=== PATIENT | male | born 1940 | race Caucasian/White ===

== ENCOUNTER 2017-12-28 13:45 | Inpatient (IN) ==
--- NOTE | 2017-12-28 14:00 | Emergency Department Note ---
Disposition Weakness HPI - General Chief complaint: ED Weakness Stated complaint: Dehydration Time Seen by Provider: 12/28/17 13:54 Source: patient Mode of arrival: ambulatory Limitations: no limitations Nursing Notes Reviewed: Yes Vital Signs Reviewed: Yes - History of Present Illness Pain Scale: 9 - Related Data Home Medications Medication Instructions Recorded Confirmed Rabeprazole Sodium [Aciphex] 20 mg PO DAILY 10/03/16 11/08/17 Docusate Sodium [Colace] 200 mg PO BID 11/08/17 11/08/17 OxyCODONE Immed Rel [Roxicodone 20 20 mg PO Q3H PRN 11/08/17 11/08/17 MG] Oxycodone HCl [Oxycontin] 40 mg PO Q8H 11/08/17 11/08/17 Rivaroxaban [Xarelto] 20 mg PO DAILY 11/08/17 11/08/17 Sennosides [Senokot] 2 tab PO BID 11/08/17 11/08/17 predniSONE [PredniSONE] 40 mg PO DAILY 11/08/17 11/08/17 Allergies Allergy/AdvReac Type Severity Reaction Status Date / Time morphine Allergy Hallucinati Verified 09/14/17 09:05 ng aspirin AdvReac Heartburn Verified 09/14/17 09:05 Past Medical History - Past Medical History Medical history: Reports: cancer, DVT, kidney stones, pulmonary embolus, other Surgical history: Reports: no surgical history, non-contributory Psychiatric history: Reports: no psych history - Social History Smoking Status: Former smoker (quit age 31) Smokeless Tobacco Status: No Alcohol use: Reports: none Drug use: Reports: none Course Vital Signs Temperature 99.2 F 12/28/17 13:48 Pulse Rate 112 12/28/17 13:48 Respiratory Rate 18 12/28/17 13:48 Blood Pressure 95/48 12/28/17 13:48 O2 Sat by Pulse Oximetry 93 12/28/17 13:48 Temperature 99.2 F 12/28/17 13:48 Pulse Rate 112 12/28/17 13:48 Respiratory Rate 18 12/28/17 13:48 Blood Pressure 95/48 12/28/17 13:48 O2 Sat by Pulse Oximetry 93 12/28/17 13:48 Oxygen Delivery Oxygen Delivery Room Air
[2017-12-28 14:23] LABS: Hematocrit 34.8 % (37.5-50.1); Hemoglobin 11.4 g/dL (12.9-16.9); Immature Platelets 1.8 % (1.1-6.1); Mean Corpuscular HGB Conc 32.8 g/dL (31.6-35.5); Mean Corpuscular Hemoglobin 26.6 pg (28.0-33.3); Mean Corpuscular Volume 81.1 fL (83.0-100.0); Monocytes # 0.2 K/mcL (0.0-1.3); Nucleated Red Blood Cells 0.6 /100 WBC (0); Red Blood Count 4.29 M/mcL (4.19-5.50); Red Cell Distribution Width 17.7 % (11.5-14.5)
--- NOTE | 2017-12-28 14:27 | Emergency Department Note ---
Disposition Clinical Impression: Hyponatremia, Mesothelioma of left lung, Dehydration Hypotension Qualifiers: Hypotension type: unspecified hypotension type Qualified Code(s): I95.9 - Hypotension, unspecified Disposition: Admitted As Inpatient Condition: Fair Time of Disposition: 17:10 General Adult HPI - General Chief complaint: ED Weakness Stated complaint: Dehydration Time Seen by Provider: 12/28/17 13:54 Nursing Notes Reviewed: Yes Vital Signs Reviewed: Yes - History of Present Illness HPI Narrative: Patient has a history of mesothelioma and this was diagnosed 2 years ago and he does receive chemotherapy with last dose 7 days ago but no radiation or surgery has been done and he presents today with his and daughter and complained of dehydration and he has had decreased oral input since his last chemotherapy and he does not have any current vomiting or diarrhea. No infectious symptoms. He does have associated lightheadedness. This is worse with ambulation. No fever. He does have left lower anterior lung pain and this is chronic and not. He denies any blurred vision, rhinorrhea, cough or sneezing, blood in the urine or stool. No localized numbness or weakness of the extremities, slurred speech or facial droop. No skin rash. No bruising of the skin. Social history : Stopped smoking in 1971, no alcohol or drugs Pain Scale: 9 - Related Data Home Medications Medication Instructions Recorded Confirmed Rabeprazole Sodium [Aciphex] 20 mg PO DAILY 10/03/16 12/28/17 Docusate Sodium [Colace] 200 mg PO BID 11/08/17 12/28/17 OxyCODONE Immed Rel [Roxicodone 20 20 mg PO Q3H PRN 11/08/17 12/28/17 MG] Oxycodone HCl [Oxycontin] 40 mg PO Q8H 11/08/17 12/28/17 Rivaroxaban [Xarelto] 20 mg PO DAILY 11/08/17 12/28/17 Sennosides [Senokot] 2 tab PO BID 11/08/17 12/28/17 Dexamethasone [Decadron] 4 mg PO DAILY 12/28/17 12/28/17 Allergies Allergy/AdvReac Type Severity Reaction Status Date / Time morphine Allergy Hallucinati Verified 12/28/17 14:47 ng aspirin AdvReac Heartburn Verified 12/28/17 14:47 All systems ED: reviewed and negative except as stated. Review of Systems: As Per HPI Past Medical History - Past Medical History Medical history: Reports: cancer, DVT, kidney stones, pulmonary embolus, other Surgical history: Reports: no surgical history, non-contributory Psychiatric history: Reports: no psych history - Social History Smoking Status: Former smoker (quit age 31) Smokeless Tobacco Status: No Alcohol use: Reports: none Drug use: Reports: none Physical Exam CONSTITUTIONAL: Well-appearing; well-nourished; A&O X3she does know the day, month and year and name of the hospital, but was somewhat confused as to why he is in the emergency department, in no apparent distress HEAD: Normocephalic; atraumatic. EYES: PERRL, EOMI, no scleral icterus NOSE: The nose is normal in appearance without rhinorrhea NECK: Supple without rigidity, no TALON RESP: Normal chest excursion with respiration; breath sounds clear and equal bilaterally; no wheezes, rhonchi, or rales CARD: Regular rhythm, without murmurs, rub or gallop ABD: Non-distended; non-tender, soft, without rigidity, rebound or guarding SKIN: Normal for age and race; warm and dry; no apparent lesions, no rash NEUROLOGICAL: Patient is alert and oriented times three. Cranial nerves III- XII are intact. Sensory and motor functions are intact. Strength is 5/5 for flexion and extension in all 4 extremities. Patellar DTRS are equal and intact. Finger to nose testing is equal and normal bilaterally. EXTREMITIES: Pulses are 2 plus and equal times 4 extremities, no peripheral edema or calf muscle pain. Course Vital Signs Temperature 99.2 F 12/28/17 13:48 Pulse Rate 112 12/28/17 13:48 Respiratory Rate 18 12/28/17 13:48 Blood Pressure 95/48 12/28/17 13:48 O2 Sat by Pulse Oximetry 93 12/28/17 13:48 Temperature 99.2 F 12/28/17 14:28 Pulse Rate 91 12/28/17 16:00 Respiratory Rate 20 12/28/17 16:00 Blood Pressure 102/66 12/28/17 16:00 O2 Sat by Pulse Oximetry 96 12/28/17 16:20 Oxygen Delivery Oxygen Delivery Nasal Cannula Medical Decision Making - MDM Narrative Medical decision making narrative: labs, IV fluids, recheck oral temp, lactate, results are pending. The patient is hypotensive and tachycardic and he does have some altered consciousness which all concerning symptoms. 1427 I did review the patient's EKG showing sinus tachycardia with a rate of 112 bpm and without acute ischemic change 1446 The patient does have pancytopenia but more concerning does have significant hyponatremia with sodium 124, this could be from SIADH or from another etiology. Patient does have IV fluids ordered. The patient is over and chest x -ray right now. The patient will be admitted to the hospital. Discussed this with the family and they are in agreement. Patient does have some mild confusion and the hyponatremia possibly be the reason for that and this can also be further evaluated as an inpatient 1540 The family did follow up by calling [facility] who felt the patient would benefit most with a admission here as opposed to transferring the family is comfortable with this plan and the patient will be admitted. 1709 - Medical Records Medical records reviewed: Yes I reviewed the patient's medical records. - Lab Data Lab results reviewed: Yes I reviewed the patient's lab results. Result diagrams: 12/28/17 14:09 12/28/17 14:09 Lab Results 12/28/17 12/28/17 12/28/17 Range/Units 14:09 14:09 14:48 WBC 3.3 L (4.3-11.1) K/mcL RBC 4.29 (4.19-5.50) M/mcL Hgb 11.4 L (12.9-16.9) g/dL Hct 34.8 L (37.5-50.1) % MCV 81.1 L (83.0-100.0) fL MCH 26.6 L (28.0-33.3) pg MCHC 32.8 (31.6-35.5) g/dL RDW 17.7 H (11.5-14.5) % Plt Count 61 L (140-400) K/mcL MPV 8.0 L (9.4-12.4) fL Seg Neutrophils % 78.0 % Band Neutrophils % 6.0 H (0-4) % Lymphocytes % 6.0 % Monocytes % 6.0 % Myelocytes % 4.0 H (0) % Neutrophils # 2.8 (1.6-8.9) K/mcL Lymphocytes # 0.2 L (0.6-4.6) K/mcL Monocytes # 0.2 (0.0-1.3) K/mcL Nucleated RBCs/100 WBC 0.6 H (0) /100 WBC Platelet Estimate Decreased L (Normal) Immature Plt Fraction 1.8 (1.1-6.1) % Anisocytosis 1+ A (Not Present) Sodium 124 L (136-145) mEq/L Potassium 4.0 (3.5-5.1) mEq/L Chloride 88 L (98-107) mEq/L Carbon Dioxide 26 (23-29) mEq/L BUN 17 (8-23) mg/dL Creatinine 1.03 (0.70-1.30) mg/dL Est GFR ( Amer) > 60 (> 60) Est GFR (Non-Af Amer) > 60 (> 60) BUN/Creatinine Ratio 17 (6-26) Glucose 133 H (70-105) mg/dL Calculated Osmolality 261 L (280-300) Lactic Acid 0.9 (0.5-2.2) mmol/L Calcium 9.5 (8.6-10.3) mg/dL Total Bilirubin (0.3-1.0) mg/dL Direct Bilirubin (0.0-0.2) mg/dL Indirect Bilirubin (0.0-1.2) mg/dL AST (13-39) Units/L ALT (7-52) Units/L Alkaline Phosphatase (34-104) Units/L Troponin I < 0.03 (< 0.04) ng/mL Serum Total Protein (6.4-8.9) g/dL Albumin (3.5-5.7) g/dL Globulin (2.4-3.5) g/dL Albumin/Globulin Ratio (1.1-2.2) TSH (0.340-5.600) mcIU/mL Free T4 (0.70-2.00) ng/dl Random Cortisol mcg/dl 12/28/17 Range/Units 14:48 WBC (4.3-11.1) K/mcL RBC (4.19-5.50) M/mcL Hgb (12.9-16.9) g/dL Hct (37.5-50.1) % MCV (83.0-100.0) fL MCH (28.0-33.3) pg MCHC (31.6-35.5) g/dL RDW (11.5-14.5) % Plt Count (140-400) K/mcL MPV (9.4-12.4) fL Seg Neutrophils % % Band Neutrophils % (0-4) % Lymphocytes % % Monocytes % % Myelocytes % (0) % Neutrophils # (1.6-8.9) K/mcL Lymphocytes # (0.6-4.6) K/mcL Monocytes # (0.0-1.3) K/mcL Nucleated RBCs/100 WBC (0) /100 WBC Platelet Estimate (Normal) Immature Plt Fraction (1.1-6.1) % Anisocytosis (Not Present) Sodium (136-145) mEq/L Potassium (3.5-5.1) mEq/L Chloride (98-107) mEq/L Carbon Dioxide (23-29) mEq/L BUN (8-23) mg/dL Creatinine (0.70-1.30) mg/dL Est GFR ( Amer) (> 60) Est GFR (Non-Af Amer) (> 60) BUN/Creatinine Ratio (6-26) Glucose (70-105) mg/dL Calculated Osmolality (280-300) Lactic Acid (0.5-2.2) mmol/L Calcium (8.6-10.3) mg/dL Total Bilirubin 0.6 (0.3-1.0) mg/dL Direct Bilirubin 0.1 (0.0-0.2) mg/dL Indirect Bilirubin 0.5 (0.0-1.2) mg/dL AST 13 (13-39) Units/L ALT 10 (7-52) Units/L Alkaline Phosphatase 79 (34-104) Units/L Troponin I (< 0.04) ng/mL Serum Total Protein 7.2 (6.4-8.9) g/dL Albumin 3.6 (3.5-5.7) g/dL Globulin 3.6 H (2.4-3.5) g/dL Albumin/Globulin Ratio 1.0 L (1.1-2.2) TSH 24.529 H (0.340-5.600) mcIU/mL Free T4 0.79 (0.70-2.00) ng/dl Random Cortisol 16.0 mcg/dl - Radiology Data Radiology results reviewed: Yes I reviewed the patient's radiology results. Critical Care Time Critical Care Time: No
[2017-12-28 14:40] LABS: Troponin I < 0.03 ng/mL (< 0.04)
[2017-12-28 14:41] LABS: BUN/Creatinine Ratio 17 (6-26); Blood Urea Nitrogen 17 mg/dL (8-23); Calcium 9.5 mg/dL (8.6-10.3); Carbon Dioxide 26 mEq/L (23-29); Chloride 88 mEq/L (98-107); Glucose 133 mg/dL (70-105); Osmolality,Calculated 261 (280-300); Sodium 124 mEq/L (136-145); eGFR For Non-African Americans > 60 (> 60)
[2017-12-28 14:58] LABS: Platelet Count 61 K/mcL (140-400)
[2017-12-28 15:00] LABS: Lymphocytes # 0.2 K/mcL (0.6-4.6); Neutrophils # 2.8 K/mcL (1.6-8.9)
[2017-12-28 15:01] LABS: Anisocytosis 1+ (Not Present); Platelet Estimate Decreased (Normal)
[2017-12-28 15:24] LABS: Albumin 3.6 g/dL (3.5-5.7); Bilirubin,Direct 0.1 mg/dL (0.0-0.2); Bilirubin,Indirect 0.5 mg/dL (0.0-1.2); Bilirubin,Total 0.6 mg/dL (0.3-1.0); Globulin 3.6 g/dL (2.4-3.5); Total Protein 7.2 g/dL (6.4-8.9)
[2017-12-28] MEDS ORDERED: 0.9 % Sodium Chloride 500 ML IVC ONE ×2 (16:19)
--- NOTE | 2017-12-28 16:41 | Internal Med History&Physical ---
Date of Encounter: 12/29/17 Time of Encounter: 16:36 Internal Medicine - H&P: HPI Chief complaint: weakness and fatigue Admitted From: Home Plans for Post Hospital Care: Home History of present illness: Mr. Stein is a 77 year old male with history of mesothelioma diagnosed two years ago on chemotherapy, and DVT/PE on xarelto presented to the ED with complaint of weakness. As per patient he received chemotherapy at [facility] 7 days before admission and has been having progressively decreasing oral intake in the past 7 days. he has not consmed any liquids or solids today. He denies any nausea vomiting or diarrhea. He does complain of lightheadedness that started this morning along with dryness of his mouth which prompted him to call his doctor at [facility] and was told to come to [facility] for hydration therapy. he was treated with [facility] bol[facility] with improvement of his symptoms. he was found to be hyponatremic and hypochloremic so he was endorsed for admission. he denies fever, chills, falls, headtrauma, vision loss, chest pain, SOB, N/V/D , constipation. he does complain of LUQ abdominal pain and states that his cancer is located there whch he has been prescribed oxycodone by his doctors at [facility]. he is due for chemotherapy back at [facility] with Dr. Varghese next sunday with gemcitrabine. Past Med Surg Social Fam HX - Past Medical History Medical history: cancer, DVT, kidney stones, pulmonary embolus, other Additional medical history: lung cancer Psychiatric history: no psych history - Past Surgical History Surgical History: no surgical history, non-contributory - Social History Smoking Status: Former smoker (quit age 31) Smokeless Tobacco Status: No Alcohol use: none Drug use: none Internal Medicine - H&P: Meds Rabeprazole Sodium [Aciphex] 20 mg PO DAILY 10/03/16 [History] Docusate Sodium [Colace] 200 mg PO BID 11/08/17 [History] OxyCODONE Immed Rel [Roxicodone 20 MG] 20 mg PO Q3H PRN 11/08/17 [History] Oxycodone HCl [Oxycontin] 40 mg PO Q8H 11/08/17 [History] Rivaroxaban [Xarelto] 20 mg PO DAILY 11/08/17 [History] Sennosides [Senokot] 2 tab PO BID 11/08/17 [History] Dexamethasone [Decadron] 4 mg PO DAILY 12/28/17 [History] 3 Allergy/AdvReac Type Severity Reaction Status Date / Time morphine Allergy Hallucinati Verified 12/28/17 14:47 ng aspirin AdvReac Heartburn Verified 12/28/17 14:47 All Systems PM: review of systems was performed and is negative for pertinent findings except as documented above in the HPI. - Constitutional Vitals: Temp Pulse Resp BP Pulse Ox 99.2 F 91 20 102/66 96 12/28/17 14:28 12/28/17 16:00 12/28/17 16:00 12/28/17 16:00 12/28/17 16:20 - Other Additional findings: General: Patient is alert, oriented, no acute distress, Head: atraumatic, normocephalic, Eye: normal appearance, PERRL, no scleral icterus, no conjunctival injection ENT: mucous membranes Dry , normal external ear exam Neck: normal inspection, trachea midline, full ROM, no carotid bruits Chest: normal inspection, symmetric chest rise Respiratory: Good respiratory effort. Bilateral breath sounds are clear without wheezing, crackles, or rhonchi. Cardiovascular: Regular rate and rhythm. No clicks, rubs, gallops, or murmors. Normal heart sounds. Abdomen: Bowel sounds present normoactive x-4 quadrants. Abdomen is soft, nondistended. mild LuQ tenderness. No guarding or rebound. No organomegaly noted, Musculoskeletal: Spontaneously moving all extremities. no edema or calf tenderness Skin: warm, dry, intact. dehydrated Neuro: Alert and oriented x4. Sensation light touch intact. Cranial nerves II- 12 is intact. not aphasic, No nystagmus Psych: Patient's affect is normal Internal Med - H&P Results - Labs CBC & Chem 7: 12/28/17 14:09 12/28/17 18:53 Labs: Short CBC 12/28/17 Range/Units 14:09 WBC 3.3 L (4.3-11.1) K/mcL Hgb 11.4 L (12.9-16.9) g/dL Hct 34.8 L (37.5-50.1) % Plt Count 61 L (140-400) K/mcL Neutrophils # 2.8 (1.6-8.9) K/mcL BMP 12/28/17 14:09 Sodium 124 L Potassium 4.0 Chloride 88 L Carbon Dioxide 26 BUN 17 Creatinine 1.03 Glucose 133 H Calcium 9.5 Cardiac Enzymes 12/28/17 Range/Units 14:09 Troponin I < 0.03 (< 0.04) ng/mL Liver Function 12/28/17 Range/Units 14:48 Total Bilirubin 0.6 (0.3-1.0) mg/dL Direct Bilirubin 0.1 (0.0-0.2) mg/dL AST 13 (13-39) Units/L ALT 10 (7-52) Units/L Alkaline Phosphatase 79 (34-104) Units/L Albumin 3.6 (3.5-5.7) g/dL - Diagnostic Studies Chest x-ray Additional comments: Large hazy opacity projected over the lateral left hemithorax most compatible worsening left-sided pleural mass. - Assessment and plan (1) Hyponatremia with decreased serum osmolality Current Visit: Yes Status: Acute Assessment and plan: most likely secondary to poor oral intake -hypovolumic on exam will get CT head to rule out any intracranial abnormalities received 1 L NS in the ED will follow with NS at 125 ml/hr Check BMP at 6pm then q6 hrs Check Urine osmolarity, Urine lytes Check TSH, Free-T4, cortisol level Lipid panel- TGD in AM magnesium, PO4 Replace potassium if needed Avoid diuretics and SSRIs Avoid over correction of hyponatremia (2) Mesothelioma of lung Current Visit: Yes Status: Acute Assessment and plan: is following with Dr. Varghese had chemotherapy 1 week ago due for chemotherapy again next sunday (Gemcitabine ) will continue dexamethasone (3) DVT (deep venous thrombosis) Current Visit: No Status: Acute Assessment and plan: on xarelto - took his dose this AM next dose is due tomorrow in the AM - follow CBC and continue according to platelets has thrombocytopenia (61) most likely secondary to chemotherapy monitor platelets watch for bleeding Qualifiers: Affected thrombotic vein of extremity: unspecified vein of extremity Chronicity: unspecified Laterality: unspecified laterality Qualified Code(s) : I82.409 - Acute embolism and thrombosis of unspecified deep veins of unspecified lower extremity (4) Pancytopenia due to chemotherapy Current Visit: Yes Status: Acute Assessment and plan: secondary to chemotherapy will continue to follow CBC type and screen H/h and hemodynamically stable (5) DVT prophylaxis Current Visit: Yes Status: Acute Assessment and plan: on xarelto - Time Spent With Patient Total time spent is greater than 50% in coordination of care (as documented) at patient's floor/unit and/or counseling patient:
[2017-12-28] MEDS ORDERED: Naloxone 0.4 MG/ML INJ IVP PRN (16:47)
[2017-12-28] MEDS ORDERED: *HR* OxyCODONE ER (12 HR) 40 MG TABLET PO SCH (17:00)
[2017-12-28 17:02] LABS: Thyroid Stimulating Hormone 24.529 mcIU/mL (0.340-5.600)
[2017-12-28 17:48] LABS: Bilirubin,Urine Negative (Negative); Blood,Urine Negative (Negative); Clarity,Urine Clear (Clear); Color,Urine Yellow (Yellow); Glucose,Urine (UA) Normal (Normal); Ketones,Urine Negative (Negative); Leukocyte Esterase,Urine Negative (Negative); Nitrite,Urine Negative (Negative); PH,Urine 6.5 pH Units (5.0-8.0); Protein,Urine 30 mg/dL (Neg-Trace); Specific Gravity,Urine 1.014 (1.010-1.025); Urobilinogen,Urine Normal (Normal)
[2017-12-28 17:52] LABS: Bacteria,Urine None Seen per hpf (None-Few); Hyaline Casts,Urine None Seen per lpf (None-Few); Squamous Epithelial Cell,Urine Moderate per lpf (None-Few); WBC,Urine 0-3 per hpf (0-3)
[2017-12-28 17:55] LABS: Potassium,Urine 41.9 mEq/L; Sodium, Urine 54.9 mEq/L
[2017-12-28] MEDS: 0.9 % Sodium Chloride 1,000 ML IVC SCH (18:30)
[2017-12-28] MEDS: *HR* OxyCODONE ER (12 HR) 40 MG TABLET PO SCH (19:05)
[2017-12-28 19:30] LABS: Magnesium 1.5 mg/dL (1.6-2.6); Phosphorous 4.7 mg/dL (2.7-4.5)
[2017-12-28 19:31] LABS: BUN/Creatinine Ratio 17 (6-26); Blood Urea Nitrogen 17 mg/dL (8-23); Calcium 8.7 mg/dL (8.6-10.3); Carbon Dioxide 27 mEq/L (23-29); Chloride 91 mEq/L (98-107); Glucose 154 mg/dL (70-105); Osmolality,Calculated 269 (280-300); Potassium 4.2 mEq/L (3.5-5.1); Sodium 127 mEq/L (136-145); eGFR For Non-African Americans > 60 (> 60)
[2017-12-28] MEDS: Sennosides 8.6 MG TABLET PO SCH (20:55)
[2017-12-28] MEDS: *HR* OxyCODONE Immed Rel 5 MG TABLET PO PRN (22:40)
--- NOTE | 2017-12-28 23:11 | Event Note ---
Date of Encounter: 12/28/17 Time of Encounter: 20:[address] findings were discussed with patient and family. they were told that there is a need for MRI to better visualize the area. they would like to think about if they would like to proceed with the MRI because they were concenred that it could have been a mass. technician biological health and nurse notified i spoke to the family again, discussed that the CT findings suggested Hypodensity in the right frontal lobe, anterior cerebral artery territory. This is consistent with infarction, age indeterminate from subacute to chronic and no mass was visualized they decided that they will have the MRI done in the AM neurologist consulted as patient is on xarelto for Pe adn DVT and has thrombocytopenia in regards to adding ASA ( reports he is not allergic to ASA) to his regimen along with lipitor will send lipid panel in the AM - lipitor 40 mg started as per neurologist will continue xarelto as he is thrombocytopenic and hold ASA for now will continue lipitor will follow up MRI in the AM
[2017-12-28] MEDS ORDERED: Aspirin 81 MG TAB.CHEW PO SCH (23:30)
[2017-12-29 01:04] LABS: Red Cell Distribution Width 17.1 % (11.5-14.5)
[2017-12-29 01:06] LABS: Hematocrit 28.4 % (37.5-50.1); Hemoglobin 9.2 g/dL (12.9-16.9); Immature Platelets 2.6 % (1.1-6.1); Mean Corpuscular HGB Conc 32.4 g/dL (31.6-35.5); Mean Corpuscular Hemoglobin 26.5 pg (28.0-33.3); Mean Corpuscular Volume 81.8 fL (83.0-100.0); Mean Platelet Volume 8.9 fL (9.4-12.4); Red Blood Count 3.47 M/mcL (4.19-5.50)
[2017-12-29 01:16] LABS: BUN/Creatinine Ratio 19 (6-26); Blood Urea Nitrogen 17 mg/dL (8-23); Calcium 8.7 mg/dL (8.6-10.3); Carbon Dioxide 27 mEq/L (23-29); Chloride 93 mEq/L (98-107); Chol/HDL Ratio 2.5 (0-4.9); Glucose 139 mg/dL (70-105); Osmolality,Calculated 270 (280-300); Potassium 3.9 mEq/L (3.5-5.1); Sodium 128 mEq/L (136-145); eGFR For Non-African Americans > 60 (> 60)
[2017-12-29 01:31] LABS: Platelet Count 56 K/mcL (140-400)
[2017-12-29] MEDS: 0.9 % Sodium Chloride 1,000 ML IVC SCH ×3 (02:10→22:14)
[2017-12-29 02:13] LABS: Lymphocytes # 0.2 K/mcL (0.6-4.6); Monocytes # 0.2 K/mcL (0.0-1.3); Neutrophils # 2.2 K/mcL (1.6-8.9); Platelet Estimate Decreased (Normal); Toxic Granulation Present (Not Present)
[2017-12-29 02:14] LABS: Anisocytosis 1+ (Not Present); Macrocytosis Present (Not Present)
[2017-12-29] MEDS: *HR* OxyCODONE ER (12 HR) 40 MG TABLET PO SCH ×3 (04:05→18:49)
[2017-12-29 07:10] LABS: BUN/Creatinine Ratio 18 (6-26); Blood Urea Nitrogen 16 mg/dL (8-23); Calcium 8.9 mg/dL (8.6-10.3); Carbon Dioxide 28 mEq/L (23-29); Chloride 92 mEq/L (98-107); Glucose 102 mg/dL (70-105); Osmolality,Calculated 271 (280-300); Potassium 4.2 mEq/L (3.5-5.1); Sodium 130 mEq/L (136-145); eGFR For Non-African Americans > 60 (> 60)
[2017-12-29] MEDS: *HR* OxyCODONE Immed Rel 5 MG TABLET PO PRN ×4 (07:47→20:36)
[2017-12-29] MEDS: *HR* Rivaroxaban 10 MG TABLET PO SCH (09:16)
[2017-12-29] MEDS: Sennosides 8.6 MG TABLET PO SCH ×2 (09:16→20:36)
--- NOTE | 2017-12-29 14:07 | Internal Med Progress Note ---
Date of Encounter: 12/29/17 Time of Encounter: 13:57 - Assessment and plan (1) Hyponatremia with decreased serum osmolality Current Visit: Yes Status: Acute Assessment and plan: most likely secondary to underlying brain mass high TSH. CT brain and MRI brain done with above-mentioned finding. Trending up sodium level. Continue to monitor BMP. (2) Mesothelioma of lung Current Visit: Yes Status: Acute Assessment and plan: is following with Dr. Varghese MRI with right small lesion possible mass therefore consulted oncologist. had chemotherapy 1 week ago due for chemotherapy again next sunday (Gemcitabine ) will continue dexamethasone (3) Pancytopenia due to chemotherapy Current Visit: Yes Status: Acute Assessment and plan: secondary to chemotherapy most likely. Consulted oncologist. Continue to monitor. Aspirin on hold. (4) DVT (deep venous thrombosis) Current Visit: No Status: Acute Assessment and plan: Recently diagnosed in September 2017. I discussed with neurologist about continuation of Xarelto having recent brain mass diagnosis and he advised to continue as there is no sign of hemorrhage will recently diagnosed DVT. Continue to monitor patient. Qualifiers: Affected thrombotic vein of extremity: unspecified vein of extremity Chronicity: unspecified Laterality: unspecified laterality Qualified Code(s) : I82.409 - Acute embolism and thrombosis of unspecified deep veins of unspecified lower extremity (5) DVT prophylaxis Current Visit: Yes Status: Acute Assessment and plan: on xarelto (6) Brain mass Current Visit: Yes Status: Acute Assessment and plan: New finding and then family. Consulted neurologist and oncologist. Will make the plan for the patient with the help of oncologists and neurologist transfer to [facility] if needed - Time Spent With Patient Total time spent is greater than 50% in coordination of care (as documented) at patient's floor/unit and/or counseling patient: 25 - 35 minutes - Subjective Interval history: Better confusion but is still not baseline. Family at bedside. Discussed the abnormal report of MRI brain. Review the lab with better sodium level. Denies fever chills nausea vomiting abdominal pain, chest pain, shortness of breath, - Constitutional Vitals: Temp Pulse Resp BP Pulse Ox 99.3 F 103 15 110/61 91 12/29/17 11:07 12/29/17 11:07 12/29/17 11:07 12/29/17 11:07 12/29/17 11:07 Exam: General appearance: No acute distress, A&O X 2, family at bedside Head exam: Atraumatic Eye exam: EOMI, PERRLA ENT exam: Moist oral mucosa Neck nontender, supple Respiratory exam: Clear to auscultation bilaterally Cardiovascular exam: Regular rate and rhythm, no systolic murmur Abdominal exam: Soft, nontender, nondistended, positive bowel sounds Extremities exam: No calf tenderness, no pedal edema Present: Skin-, warm, dry, intact Neurological exam: CN II-XII grossly intact, no focal deficits. No facial droop. Normal speech. Internal Medicine: Result - Labs CBC & Chem 7: 12/29/17 00:20 12/29/17 06:02 Labs: Short CBC 12/29/17 Range/Units 00:20 WBC 2.6 L (4.3-11.1) K/mcL Hgb 9.2 L D (12.9-16.9) g/dL Hct 28.4 L (37.5-50.1) % Plt Count 56 L (140-400) K/mcL Neutrophils # 2.2 (1.6-8.9) K/mcL BMP 12/28/17 12/29/17 12/29/17 18:53 00:20 06:02 Sodium 127 L 128 L 130 L Potassium 4.2 3.9 4.2 Chloride 91 L 93 L 92 L Carbon Dioxide 27 27 28 BUN 17 17 16 Creatinine 0.98 0.89 0.89 Glucose 154 H 139 H 102 Calcium 8.7 8.7 8.9 Urine 12/28/17 Range/Units 17:35 Urine Color Yellow (Yellow) Urine Clarity Clear (Clear) Urine pH 6.5 (5.0-8.0) pH Units Ur Specific [place] 1.014 (1.010-1.025) Urine Protein 30 H (Neg-Trace) mg/dL Urine Glucose (UA) Normal (Normal) mg/dL - Impressions Impressions Brain MRI 12/29/17 19:37 IMPRESSION: 1. Enhancing right frontal lobe mass measures 1.5 x 1.4 x 1.3 cm most suspicious for intracranial metastatic disease in the setting of known lung cancer. Surrounding vasogenic edema, but no midline shift. 2. Parenchymal volume loss and sequela of mild to moderate chronic microvascular ischemic changes. The findings were sent to the Radiology Results Communication [facility] at 11:26 am on 12/29/2017to be communicated to a licensed caregiver. D/ / 12/29/2017 11:27:34 Aung العراقي MD / kapil Interpreting Provider: Aung العراقي MD Consult Discharge Plan - Plan Referrals: Nicki Sheehan CNP [Primary Care Provider] -
--- NOTE | 2017-12-29 15:42 | Neurology - Consult Note ---
Date of Encounter: 12/29/17 Time of Encounter: 11:30 Assessment and Plan (1) Brain mass Current Visit: Yes Status: Acute Patient was an history of mesothelioma of the lung status post chemotherapy was found to have a hypodensity on the CT scan of the head had an MRI of the brain that shows mass with the possibility of metastatic disease The mass seems to be enhancing right frontal lobe mass measures 1.5 x 1.4 x 1.3 cm most suspicious for intracranial metastatic disease. There is some Surrounding vasogenic edema, but no midline shift. Patient would require further workup at the moment it is not having any other clinical symptoms his confusion earlier which was likely related to dehydration and hyponatremia has been resolved now. No evidence of any bleed currently patient is on Xarelto for DVT he may continue on it. Patient also on Decadron perhaps dose could be adjusted and increased. Oncology service has been consulted for further recommendations. Explained and discussed with the family and the patient that patient may require tissue diagnosis as is already been established at [facility] perhaps best that he could follow-up of there as clinically stable do not think that he would require any urgent transfer now but certainly need to be seen sooner than later. May start him on prophylaxis antiepileptic medication but will await recommendations from oncology. Discussed in detail with the family and patient all questions were answered. (2) Mesothelioma of lung Current Visit: Yes Status: Acute History of Present Illness HPI: Mr. Stein is a 77 year old male with history of mesothelioma diagnosed two years ago on chemotherapy, and DVT/PE on xarelto presented to the ED with complaint of weakness. As per patient he received chemotherapy at [facility] 7 days before admission and has been having progressively decreasing oral intake in the past 7 days. he was also having lightheadedness that started this morning along with dryness of his mouth which prompted him to call his doctor at [facility] and was told to come to [facility] for hydration therapy. he was treated with IVF bolus in Ed with improvement of his symptoms. he was found to be hyponatremic and hypochloremic so he was admitted for admission. he denies fever, chills, falls, headtrauma, vision loss, chest pain, SOB, N/V/D , constipation. he does complain of LUQ abdominal pain and states.. he is due for chemotherapy back at [facility] with Dr. Varghese next roge with gemcitrabine. Because of the confusion he did have a CT scan in the emergency room that shows some hypodensity with the concern off for subacute infarct. For that reason patient had an MRI of the brain as well. Clinically he did not have any other symptoms besides some confusion that he had it earlier that has been resolved. Patient denies any focal motor weakness did have some dizziness and lightheadedness but no history of seizures and no history of a stroke MRI of the brain showed Enhancing right frontal lobe mass measures 1.5 x 1.4 x 1.3 cm most suspicious for intracranial metastatic disease in the setting of known lung cancer. Surrounding vasogenic edema, but no midline shift. Parenchymal volume loss and sequela of mild to moderate chronic microvascular ischemic changes. Past Med Surg Social Fam HX - Past Medical History Medical history: cancer, DVT, kidney stones, pulmonary embolus, other Additional medical history: lung cancer Psychiatric history: no psych history - Past Surgical History Surgical History: no surgical history, non-contributory - Social History Smoking Status: Former smoker (quit age 31) Smokeless Tobacco Status: No Alcohol use: none Drug use: none Medications and Allergies Rabeprazole Sodium [Aciphex] 20 mg PO DAILY 10/03/16 [History] Docusate Sodium [Colace] 200 mg PO BID 11/08/17 [History] OxyCODONE Immed Rel [Roxicodone 20 MG] 20 mg PO Q3H PRN 11/08/17 [History] Oxycodone HCl [Oxycontin] 40 mg PO Q8H 11/08/17 [History] Rivaroxaban [Xarelto] 20 mg PO DAILY 11/08/17 [History] Sennosides [Senokot] 2 tab PO BID 11/08/17 [History] Dexamethasone [Decadron] 4 mg PO DAILY 12/28/17 [History] 3 Allergy/AdvReac Type Severity Reaction Status Date / Time morphine Allergy Hallucinati Verified 12/28/17 14:47 ng aspirin AdvReac Heartburn Verified 12/28/17 14:47 All Systems: The remainder of the systems were reviewed and are negative Physical Examination - Vital Signs Vital Signs: Initial Vital Signs Temp Pulse Resp BP Pulse Ox 99.2 F 112 18 95/48 93 12/28/17 13:48 12/28/17 13:48 12/28/17 13:48 12/28/17 13:48 12/28/17 13:48 - Constitutional General appearance: comfortable - Neurologic Sensorimotor examination: intact Detailed motor examination: grossly full strength in all extremities Motor examination - right side: 4/5: deltoids, biceps, triceps, wrist flexion, wrist extension, 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, hip flexors, tibialis Anterior, quadriceps, toe extension (EHL), plantarflexion Motor examination - left side: 4/5: deltoids, biceps, triceps, wrist flexion, wrist extension, hip flexors, 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, quadriceps, tibialis Anterior, toe extension (EHL), plantarflexion Detailed sensory examination: intact Reflex and gait examination: intact Reflexes: Biceps: 1+, Triceps: 1+, Brachioradialis: 1+, Patella: 1+, Achilles: 1 + Mental Status Examination: awake, alert, oriented to person, oriented to place, oriented to time, follows commands appropriately, answers questions appropriately, no agnosia, no aphasia, no aproxia Cranial nerve examination: PERRL, EOMI, visual clement intact, corneal reflexes brisk symmetrically, sensory to face intact, mastication intact, no facial asymmetry is present, no dysarthria, hearing is intact symmetrically, soft palate elevates bilaterally upon phonation, gag reflex intact, flexes SCM and trapezius muscles symmetrically with full power, tongue protrudes midline, no atrophy or facial fasiculations present Results - Laboratory Findings CBC and BMP: 12/29/17 00:20 12/29/17 06:02 Abnormal lab findings: Abnormal lab results WBC 2.6 K/mcL (4.3-11.1) L 12/29/17 00:20 RBC 3.47 M/mcL (4.19-5.50) L 12/29/17 00:20 Hgb 9.2 g/dL (12.9-16.9) L D 12/29/17 00:20 Hct 28.4 % (37.5-50.1) L 12/29/17 00:20 MCV 81.8 fL (83.0-100.0) L 12/29/17 00:20 MCH 26.5 pg (28.0-33.3) L 12/29/17 00:20 RDW 17.1 % (11.5-14.5) H 12/29/17 00:20 Plt Count 56 K/mcL (140-400) L 12/29/17 00:20 MPV 8.9 fL (9.4-12.4) L 12/29/17 00:20 Band Neutrophils % 20.0 % (0-4) H 12/29/17 00:20 Metamyelocytes % 2.0 % (0) H 12/29/17 00:20 Myelocytes % 4.0 % (0) H 12/28/17 14:09 Lymphocytes # 0.2 K/mcL (0.6-4.6) L 12/29/17 00:20 Nucleated RBCs/100 WBC 0.6 /100 WBC (0) H 12/28/17 14:09 Toxic Granulation Present (Not Present) A 12/29/17 00:20 Platelet Estimate Decreased (Normal) L 12/29/17 00:20 Anisocytosis 1+ (Not Present) A 12/29/17 00:20 Macrocytosis Present (Not Present) A 12/29/17 00:20 Sodium 130 mEq/L (136-145) L 12/29/17 06:02 Chloride 92 mEq/L (98-107) L 12/29/17 06:02 Calculated Osmolality 271 (280-300) L 12/29/17 06:02 Phosphorus 4.7 mg/dL (2.7-4.5) H 12/28/17 18:53 Magnesium 1.5 mg/dL (1.6-2.6) L 12/28/17 18:53 Globulin 3.6 g/dL (2.4-3.5) H 12/28/17 14:48 Albumin/Globulin Ratio 1.0 (1.1-2.2) L 12/28/17 14:48 TSH 24.529 mcIU/mL (0.340-5.600) H 12/28/17 14:48 Urine Protein 30 mg/dL (Neg-Trace) H 12/28/17 17:35 Urine Microscopic RBC 3-5 per hpf (0-3) H 12/28/17 17:35 Ur Squamous Epith Cells Moderate per lpf (None-Few) H 12/28/17 17:35 - Diagnostic Findings Additional findings: MRI of the brain . Enhancing right frontal lobe mass measures 1.5 x 1.4 x 1.3 cm most suspicious for intracranial metastatic disease in the setting of known lung cancer. Surrounding vasogenic edema, but no midline shift. 2. Parenchymal volume loss and sequela of mild to moderate chronic microvascular ischemic changes. Consult Discharge Plan - Plan Referrals: Nicki Sheehan CNP [Primary Care Provider] -
--- NOTE | 2017-12-29 17:35 | Oncology Inp Consult Note ---
Date of Encounter: 12/29/17 Time of Encounter: 15:00 Assessment and Plan (1) Mesothelioma of left lung Status: Acute Assessment and plan: Mesothelioma of lung with progressive lung, with the lytic lesion pathologic destruction of the lower ribs, left pleural-based mass status post chemotherapy and palliative radiation therapy, on single agent gemcitabine at [facility], had received his cycle 1 day 8 gemcitabine on 12/21/2017. CT, MRI brain findings discussed with patient and his family. He has not had prior brain imaging at [facility]. Likely metastatic disease although rare from his primary cancer. He may not be a candidate for neurosurgical intervention due to systemic disease and palliative treatments. I have put him on dexamethasone TID due to vasogenic edema without shift. He is being seen by neurology, appreciate recommendations. He will continue with his anticoagulation. His weakness has improved and clinically stable The patient does not want to be transferred to [place] for cyberknife radiotherapy today. He would like to discuss with his Oncologist at [facility] and see him Sunday - Data of Consult Requesting Physician: Dheeraj Nicole MD Primary Care Provider: Nicki Sheehan CNP - Consult Narrative Reason for consult: mesothelioma, brain lesion History of present illness: Mr. 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 He is currently on gemcitabine 2 weeks on and a week off regimen, underwent last treatment the week or so ago. His last visit with Dr. Boland on 12/14/2017 he had uncontrolled pain in the abdomen and back and moderate fatigue, increased nausea he was discussed of supportive care, hospice versus gemcitabine treatment. Patient started gemcitabine treatment. His systemic imaging scans where from October 2017. Patient had called us providers at [facility] due to generalized weakness, poor oral intake, he was referred to [facility] for hydration. Patient underwent lab works and the head CT to rule out stroke which showed hypodensity in the right frontal lobe, anterior cerebral artery territory. He further underwent MRI of the brain that shows, enhancing right frontal lobe mass measuring 1.5 x 1.4 x 1.3 cm suspicious for metastatic disease. Oncology consulted due to brain metastatic disease. The patient has a poor appetite he takes dexamethasone once daily, he denies any focal weakness or headaches. He has left lower chest discomfort rates it a 6 out of 10. Past Med Surg Social Fam HX - Past Medical History Medical history: cancer, DVT, kidney stones, pulmonary embolus, other Additional medical history: lung cancer Psychiatric history: no psych history - Past Surgical History Surgical History: no surgical history, non-contributory - Social History Smoking Status: Former smoker (quit age 31) Smokeless Tobacco Status: No Alcohol use: none Drug use: none Medications and Allergies Rabeprazole Sodium [Aciphex] 20 mg PO DAILY 10/03/16 [History] Docusate Sodium [Colace] 200 mg PO BID 11/08/17 [History] OxyCODONE Immed Rel [Roxicodone 20 MG] 20 mg PO Q3H PRN 11/08/17 [History] Oxycodone HCl [Oxycontin] 40 mg PO Q8H 11/08/17 [History] Rivaroxaban [Xarelto] 20 mg PO DAILY 11/08/17 [History] Sennosides [Senokot] 2 tab PO BID 11/08/17 [History] Dexamethasone [Decadron] 4 mg PO DAILY 12/28/17 [History] 3 Allergy/AdvReac Type Severity Reaction Status Date / Time morphine Allergy Hallucinati Verified 12/28/17 14:47 ng aspirin AdvReac Heartburn Verified 12/28/17 14:47 Review of systems: IN hpi Oncology - Exam - Constitutional Vitals: Temp Pulse Resp BP Pulse Ox 98.1 F 109 14 111/68 91 12/29/17 14:53 12/29/17 14:53 12/29/17 14:53 12/29/17 14:53 12/29/17 14:53 General appearance: no acute distress - Head Head exam: Present: atraumatic, normal inspection - Eye Eye exam: Present: sclera anicteric - ENT ENT exam: Present: mucous membranes moist - Neck Neck exam: Present: full ROM - Respiratory Respiratory exam: Present: CTAB - Cardiovascular Cardiovascular exam: Present: +S1, +S2 - GI/Abdominal GI/Abdominal exam: Present: normal bowel sounds, soft - Extremities Exam Extremities exam: Present: normal inspection - Neurological Exam Neurological exam: Present: alert, CN II-XII intact, oriented X3, no focal deficits - Skin Skin exam: Present: normal color Consult Discharge Plan - Plan Referrals: Nicki Sheehan CNP [Primary Care Provider] -
[2017-12-29] MEDS: Dexamethasone 4 MG/ML VIAL IVP SCH (20:36)
[2017-12-30] MEDS: *HR* OxyCODONE ER (12 HR) 40 MG TABLET PO SCH ×3 (03:01→20:31)
[2017-12-30] MEDS: *HR* OxyCODONE Immed Rel 5 MG TABLET PO PRN ×4 (06:02→22:23)
[2017-12-30] MEDS: Levothyroxine 25 MCG TABLET PO SCH (06:05)
[2017-12-30] MEDS: 0.9 % Sodium Chloride 1,000 ML IVC SCH ×2 (07:39→08:04)
[2017-12-30] MEDS: Sennosides 8.6 MG TABLET PO SCH ×2 (08:05→20:32)
[2017-12-30] MEDS: Dexamethasone 4 MG/ML VIAL IVP SCH ×3 (08:05→20:34)
[2017-12-30] MEDS: *HR* Rivaroxaban 10 MG TABLET PO SCH (08:05)
[2017-12-30 08:42] LABS: Hematocrit 31.4 % (37.5-50.1); Hemoglobin 10.4 g/dL (12.9-16.9); Lymphocytes # 0.2 K/mcL (0.6-4.6); Mean Corpuscular HGB Conc 33.1 g/dL (31.6-35.5); Mean Corpuscular Hemoglobin 27.3 pg (28.0-33.3); Mean Corpuscular Volume 82.4 fL (83.0-100.0); Mean Platelet Volume 8.9 fL (9.4-12.4); Monocytes # 0.1 K/mcL (0.0-1.3); Red Blood Count 3.81 M/mcL (4.19-5.50); Red Cell Distribution Width 17.1 % (11.5-14.5)
[2017-12-30 08:44] LABS: Platelet Count 63 K/mcL (140-400)
[2017-12-30 09:00] LABS: Neutrophils # 3.7 K/mcL (1.6-8.9); Platelet Estimate Decreased (Normal)
[2017-12-30 09:08] LABS: BUN/Creatinine Ratio 21 (6-26); Blood Urea Nitrogen 16 mg/dL (8-23); Calcium 9.1 mg/dL (8.6-10.3); Carbon Dioxide 27 mEq/L (23-29); Chloride 96 mEq/L (98-107); Glucose 139 mg/dL (70-105); Osmolality,Calculated 265 (280-300); Potassium 3.7 mEq/L (3.5-5.1); Sodium 126 mEq/L (136-145); eGFR For Non-African Americans > 60 (> 60)
--- NOTE | 2017-12-30 14:47 | Internal Med Progress Note ---
Date of Encounter: 12/30/17 Time of Encounter: 14:45 - Assessment and plan (1) Hyponatremia with decreased serum osmolality Current Visit: Yes Status: Acute Assessment and plan: most likely secondary to underlying brain mass, high TSH. Again trending down sodium level. Consulted mirror painter. Continue to monitor BMP. (2) Brain mass Current Visit: Yes Status: Acute Assessment and plan: New finding . On board neurologist and oncologist. Will make the plan on Sunday for the patient with the help of oncologists to decide transfer to [facility] if needed or DC home. Will also contact his neurologist at [facility] to discuss the discharge plan. (3) Mesothelioma of lung Current Visit: Yes Status: Acute Assessment and plan: is following with Dr. Varghese at [facility]. had chemotherapy 1 week ago due for chemotherapy again next sunday (Gemcitabine ) (4) Pancytopenia due to chemotherapy Current Visit: Yes Status: Acute Assessment and plan: secondary to chemotherapy most likely. Consulted oncologist. Continue to monitor. Aspirin on hold. (5) DVT (deep venous thrombosis) Current Visit: No Status: Acute Assessment and plan: Recently diagnosed in September 2017. Continue Xarelto . Qualifiers: Affected thrombotic vein of extremity: unspecified vein of extremity Chronicity: unspecified Laterality: unspecified laterality Qualified Code(s) : I82.409 - Acute embolism and thrombosis of unspecified deep veins of unspecified lower extremity (6) DVT prophylaxis Current Visit: Yes Status: Acute Assessment and plan: on xarelto (7) Hypothyroidism Current Visit: Yes Status: Acute Assessment and plan: Newly diagnosed. Started low dose Synthroid. Needs to follow-up outpatient with the help of PCP. That could be also contributing for hyponatremia Qualifiers: Hypothyroidism type: acquired Qualified Code(s): E03.9 - Hypothyroidism, unspecified - Time Spent With Patient Total time spent is greater than 50% in coordination of care (as documented) at patient's floor/unit and/or counseling patient: 25 - 35 minutes - Subjective Interval history: Better confusion. Family at bedside. Review the lab with trending down sodium level. Denies headache fever chills nausea vomiting abdominal pain, chest pain, shortness of breath, urinary or bowel complaint - Constitutional Vitals: Temp Pulse Resp BP Pulse Ox 98.2 F 81 16 107/63 93 12/30/17 11:03 12/30/17 11:03 12/30/17 11:03 12/30/17 11:03 12/30/17 11:03 Exam: General appearance: No acute distress, A&O X 3 Head exam: Atraumatic Eye exam: EOMI, PERRLA ENT exam: Moist oral mucosa Neck nontender, supple Respiratory exam: Clear to auscultation bilaterally Cardiovascular exam: Regular rate and rhythm, no systolic murmur Abdominal exam: Soft, nontender, nondistended, positive bowel sounds Extremities exam: No calf tenderness, no pedal edema Present: Skin-no rash, warm, dry, intact Neurological exam: Alert, awake, oriented 3, CN II-XII intact, no focal deficits. No facial droop. Normal speech. Normal gait. Internal Medicine: Result - Labs CBC & Chem 7: 12/30/17 08:33 12/30/17 08:33 Labs: Short CBC 12/30/17 Range/Units 08:33 WBC 3.9 L (4.3-11.1) K/mcL Hgb 10.4 L (12.9-16.9) g/dL Hct 31.4 L (37.5-50.1) % Plt Count 63 L (140-400) K/mcL Neutrophils # 3.7 (1.6-8.9) K/mcL BMP 12/30/17 08:33 Sodium 126 L Potassium 3.7 Chloride 96 L Carbon Dioxide 27 BUN 16 Creatinine 0.78 Glucose 139 H Calcium 9.1 - Impressions Impressions Brain MRI 12/29/17 19:37 IMPRESSION: 1. Enhancing right frontal lobe mass measures 1.5 x 1.4 x 1.3 cm most suspicious for intracranial metastatic disease in the setting of known lung cancer. Surrounding vasogenic edema, but no midline shift. 2. Parenchymal volume loss and sequela of mild to moderate chronic microvascular ischemic changes. The findings were sent to the Radiology Results Communication [facility] at 11:26 am on 12/29/2017to be communicated to a licensed caregiver. D/ / 12/29/2017 11:27:34 Aung العراقي MD / kapil Interpreting Provider: Aung العراقي MD Consult Discharge Plan - Plan Referrals: Nicki Sheehan CNP [Primary Care Provider] -
--- NOTE | 2017-12-30 15:22 | Nephrology Consult Note ---
Date of Encounter: 12/30/17 Time of Encounter: 15:15 Assessment and Plan (1) Hyponatremia Current Visit: Yes Status: Acute Acute hyponatremia in the setting mesothelioma of the lung with presumed brain mets, hypothryoidism (TSH at 24), hypotension with decreased po intake, nausea, a bdominal pain while on dexamethasone. Etiology likely multifactorial Agree with initial volume expansion given hypotension with decrease po intake however urine osmolality noted elevated at 368 with urine sodium at 54.9 most consistent with ADH excess. Will repeat studies but suspect pt needs less fluids and more fluid restriction with added sodium intake to diet Agree with levothyroxine started Cortisol level noted WNL while on dexamethasone Will check uric acid level with labs drawn today Will add salt tabs in addition to salt packets given with meals May consider tolvaptan and/or demeclocycline use if no improvement (2) Mesothelioma of lung Current Visit: Yes Status: Acute Per oncology (3) Brain mass Current Visit: Yes Status: Acute Per oncology and neurology History of Present Illness - Reason for Consult Consult date: 12/30/17 hyponatremia Requesting physician: Cheri Martinez - History of Present Illness 77 y o male with PMH of asbestosis, mesothelioma of the lung diagnosed 2 years ago and progressive despite several rounds of chemo currently on single agent; gemcitabine s/p palliative xRT 4 weeks ago to left lungand DVT/PE on xarelto admitted for generalized weakness 7 days after gemcitabine given. Pt also has decerased po intake and was noted with sodium of 127 on presentation (baseline 132 09/2017 in our system). BP readings were also in the 90/40s. He was volume resuscitated with NS and had initial improvement in his sodium level up to 130. Renal consulted today for sodium down to 126. Also notable is Ct head done for workup of hyponatremia showing frontal lobe hypodense lesion suspicious for infarction. MRI head confirmed a mass likely intracranial mets. Oncology is on board increasing previous dexamethasone 4mg daily for appetite stimulation to 8mg iv tid for brain mets. Neurology also on board. Pt also has had worsening abdominal pain and nausea leading up to admission. Pt seen and examined with family at bedside. He reports being told he was dehydrated and has been drinking lots of water as a result. Overall, he feels better than on admission and much more clear in mentation per family Past Med Surg Social Fam HX - Past Medical History Medical history: cancer, DVT, kidney stones, pulmonary embolus, other Additional medical history: lung cancer Psychiatric history: no psych history - Past Surgical History Surgical History: no surgical history, non-contributory - Social History Smoking Status: Former smoker (quit age 31) Smokeless Tobacco Status: No Alcohol use: none Drug use: none Medications and Allergies Rabeprazole Sodium [Aciphex] 20 mg PO DAILY 10/03/16 [History] Docusate Sodium [Colace] 200 mg PO BID 11/08/17 [History] OxyCODONE Immed Rel [Roxicodone 20 MG] 20 mg PO Q3H PRN 11/08/17 [History] Oxycodone HCl [Oxycontin] 40 mg PO Q8H 11/08/17 [History] Rivaroxaban [Xarelto] 20 mg PO DAILY 11/08/17 [History] Sennosides [Senokot] 2 tab PO BID 11/08/17 [History] Dexamethasone [Decadron] 4 mg PO DAILY 12/28/17 [History] 3 Allergy/AdvReac Type Severity Reaction Status Date / Time morphine Allergy Hallucinati Verified 12/28/17 14:47 ng aspirin AdvReac Heartburn Verified 12/28/17 14:47 Review of Systems All Systems: reviewed and no additional remarkable complaints except as stated ( 10 systems reviewed and noted in HPI) Exam - Vital Signs Vital signs: Initial Vital Signs Temp Pulse Resp BP Pulse Ox 99.2 F 112 18 95/48 93 12/28/17 13:48 12/28/17 13:48 12/28/17 13:48 12/28/17 13:48 12/28/17 13:48 Vital Signs - Last 8 Hours Temp Pulse Resp BP Pulse Ox 12/30/17 15:03 97.3 F L 91 18 113/78 92 12/30/17 11:03 98.2 F 81 16 107/63 93 12/30/17 07:42 98.2 F 86 14 110/62 96 Intake and Output 12/29/17 12/30/17 12/30/17 23:59 07:59 15:59 Intake Total 950 / 950 1300 / 1300 360 / 360 Output Total 100 / 100 200 / 200 Balance 950 / 950 1200 / 1200 160 / 160 Intake: IV Fluids 950 / 950 1000 / 1000 0.9 % Sodium Chloride 1,000 ML 950 / 950 1000 / 1000 @ 125 mls/hr IVC .Q8H PO Rx#: [id number] Oral 300 / 300 360 / 360 Output: Urine 100 / 100 200 / 200 Other: Meal keep Lunch Percent of Meal Consumed 75% # Voids 1 Weight 69.8 kg Patient Weight 12/30/17 23:59 Weight 69.8 kg - General Appearance General appearance: chronically ill (NAD) EENT: ATNC, mucous membranes moist Neck: no JVD, supple Additional Comments: Good areation ant bilat Cardiology: no edema, normal S1, normal S2 Gastrointestinal: no tenderness, no guarding Integumentary: warm and dry Neurologic: no focal deficit Musculoskeletal: no deformities Psychiatric: mood/affect appropriate, cooperative Results - Lab Results 12/30/17 08:33 12/30/17 08:33 Most recent lab results Calcium 9.1 mg/dL (8.6-10.3) 12/30/17 08:33 Phosphorus 4.7 mg/dL (2.7-4.5) H 12/28/17 18:53 Magnesium 1.5 mg/dL (1.6-2.6) L 12/28/17 18:53 Urine Sodium 54.9 mEq/L 12/28/17 17:35 Consult Discharge Plan - Plan Referrals: Nicki Sheehan CNP [Primary Care Provider] -
[2017-12-30 16:08] LABS: Uric Acid 3.1 mg/dL (2.3-7.6)
[2017-12-31] MEDS: *HR* OxyCODONE Immed Rel 5 MG TABLET PO PRN ×7 (01:50→23:31)
[2017-12-31] MEDS: *HR* OxyCODONE ER (12 HR) 40 MG TABLET PO SCH ×3 (03:59→18:57)
[2017-12-31] MEDS: Levothyroxine 25 MCG TABLET PO SCH (06:10)
[2017-12-31 06:15] LABS: Hematocrit 27.1 % (37.5-50.1); Hemoglobin 9.1 g/dL (12.9-16.9); Immature Platelets 5.5 % (1.1-6.1); Mean Corpuscular HGB Conc 33.6 g/dL (31.6-35.5); Mean Corpuscular Hemoglobin 27.5 pg (28.0-33.3); Mean Corpuscular Volume 81.9 fL (83.0-100.0); Red Blood Count 3.31 M/mcL (4.19-5.50); Red Cell Distribution Width 17.1 % (11.5-14.5)
[2017-12-31 06:23] LABS: Platelet Count 95 K/mcL (140-400)
[2017-12-31 06:39] LABS: BUN/Creatinine Ratio 25 (6-26); Blood Urea Nitrogen 18 mg/dL (8-23); Calcium 8.9 mg/dL (8.6-10.3); Carbon Dioxide 27 mEq/L (23-29); Chloride 95 mEq/L (98-107); Glucose 109 mg/dL (70-105); Osmolality,Calculated 270 (280-300); Potassium 4.2 mEq/L (3.5-5.1); Sodium 129 mEq/L (136-145); eGFR For Non-African Americans > 60 (> 60)
[2017-12-31 06:40] LABS: Reactive Lymphocytes Present (Not Present)
[2017-12-31 06:42] LABS: Lymphocytes # 0.5 K/mcL (0.6-4.6); Monocytes # 0.1 K/mcL (0.0-1.3); Neutrophils # 4.7 K/mcL (1.6-8.9); Platelet Estimate Decreased (Normal)
[2017-12-31] MEDS: Dexamethasone 4 MG/ML VIAL IVP SCH ×3 (09:21→20:11)
[2017-12-31] MEDS: Sennosides 8.6 MG TABLET PO SCH ×2 (09:21→20:09)
[2017-12-31] MEDS: *HR* Rivaroxaban 10 MG TABLET PO SCH (09:21)
--- NOTE | 2017-12-31 11:20 | Neurology Progress Note ---
Date of Encounter: 12/31/17 Time of Encounter: 07:25 Assessment and Plan (1) Brain mass Current Visit: Yes Status: Acute From neurology standpoint patient is a stable. Oncology as evaluated the patient suggested palliative treatment , due to systemic disease. Continue him on dexamethasone TID due to vasogenic edema without shift. He will continue with his anticoagulation. He would like to discuss with his Oncologist at [facility] , for further treatment plan. From neurology standpoint patient is a stable and could be discharged with follow-up with oncology at [facility] (2) Mesothelioma of lung Current Visit: Yes Status: Acute Subjective Interval history: Patient seen as an follow-up seems to be stable no clinical neurological symptoms no headaches no double vision no focal motor weakness his speech seems to be improved he is been evaluated by oncology as well. Objective - Constitutional Vitals: Temp Pulse Resp BP Pulse Ox 97.4 F L 97 16 122/72 91 12/31/17 10:03 12/31/17 10:03 12/31/17 10:03 12/31/17 10:03 12/31/17 10:03 - Neurological Exam Sensorimotor examination: Present: intact Motor Examination: Present: grossly full strength in all extremities Motor examination - left side: 4/5: deltoids, biceps, triceps, wrist flexion, wrist extension, hip flexors, economist research assistant, quadriceps, tibialis Anterior, toe extension (EHL), plantarflexion Sensation intact: Present: intact Reflex and gait examination: intact Mental Status Examination: Present: awake, alert, oriented to person, oriented to place, oriented to time, follows commands appropriately, answers questions appropriately, no agnosia, no aphasia, no aproxia Cranial nerve examination: Present: PERRL, EOMI, visual clement intact, corneal reflexes brisk symmetrically, sensory to face intact, mastication intact, no facial asymmetry is present, no dysarthria, hearing is intact symmetrically, soft palate elevates bilaterally upon phonation, gag reflex intact, flexes SCM and trapezius muscles symmetrically with full power, tongue protrudes midline, no atrophy or facial fasiculations present Results - Laboratory Findings CBC and BMP: 12/31/17 05:52 12/31/17 05:52 Abnormal lab findings: Abnormal lab results RBC 3.31 M/mcL (4.19-5.50) L 12/31/17 05:52 Hgb 9.1 g/dL (12.9-16.9) L 12/31/17 05:52 Hct 27.1 % (37.5-50.1) L 12/31/17 05:52 MCV 81.9 fL (83.0-100.0) L 12/31/17 05:52 MCH 27.5 pg (28.0-33.3) L 12/31/17 05:52 RDW 17.1 % (11.5-14.5) H 12/31/17 05:52 Plt Count 95 K/mcL (140-400) L D 12/31/17 05:52 Band Neutrophils % 6.0 % (0-4) H 12/31/17 05:52 Metamyelocytes % 2.0 % (0) H 12/29/17 00:20 Myelocytes % 4.0 % (0) H 12/28/17 14:09 Lymphocytes # 0.5 K/mcL (0.6-4.6) L 12/31/17 05:52 Nucleated RBCs/100 WBC 0.6 /100 WBC (0) H 12/28/17 14:09 Reactive Lymphocytes Present (Not Present) A 12/31/17 05:52 Toxic Granulation Present (Not Present) A 12/29/17 00:20 Platelet Estimate Decreased (Normal) L 12/31/17 05:52 Anisocytosis 1+ (Not Present) A 12/29/17 00:20 Macrocytosis Present (Not Present) A 12/29/17 00:20 Sodium 129 mEq/L (136-145) L 12/31/17 05:52 Chloride 95 mEq/L (98-107) L 12/31/17 05:52 Glucose 109 mg/dL (70-105) H 12/31/17 05:52 Serum Osmolality 276 mOsm/kg (280-300) L 12/30/17 16:00 Calculated Osmolality 270 (280-300) L 12/31/17 05:52 Phosphorus 4.7 mg/dL (2.7-4.5) H 12/28/17 18:53 Magnesium 1.5 mg/dL (1.6-2.6) L 12/28/17 18:53 Globulin 3.6 g/dL (2.4-3.5) H 12/28/17 14:48 Albumin/Globulin Ratio 1.0 (1.1-2.2) L 12/28/17 14:48 TSH 24.529 mcIU/mL (0.340-5.600) H 12/28/17 14:48 Free T3 1.96 pg/mL (2.50-3.90) L 12/31/17 05:52 Urine Protein 30 mg/dL (Neg-Trace) H 12/28/17 17:35 Urine Microscopic RBC 3-5 per hpf (0-3) H 12/28/17 17:35 Ur Squamous Epith Cells Moderate per lpf (None-Few) H 12/28/17 17:35 Consult Discharge Plan - Plan Referrals: Nicki Sheehan, MADI [Primary Care Provider] -
--- NOTE | 2017-12-31 15:43 | Nephrology Progress Note ---
Date of Encounter: 12/31/17 Time of Encounter: 15:04 Subjective Principal diagnosis: Hyponatremia Objective - Vital Signs Vital signs: Vital Signs Temp Pulse Resp BP Pulse Ox 12/31/17 14:38 97.8 F 89 16 121/71 91 12/31/17 10:03 97.4 F L 97 16 122/72 91 12/31/17 06:31 98.6 F 74 15 109/57 91 12/31/17 04:19 98.0 F 79 15 122/80 91 12/30/17 18:46 97.6 F 95 16 117/74 93 Intake and Output 12/30/17 12/31/17 12/31/17 23:59 07:59 15:59 Intake Total 940 / 940 0 / 0 240 / 240 Output Total 0 / 0 275 / 275 675 / 675 Balance 940 / 940 -275 / -275 -435 / -435 Intake: Oral 940 / 940 0 / 0 240 / 240 Output: Urine 0 / 0 275 / 275 675 / 675 Other: Meal Dinner Lunch Percent of Meal Consumed 75% 25% # Voids 1 # Bowel Movements 0 0 Weight 71.3 kg - Lab 12/31/17 05:52 12/31/17 05:52 Most recent lab results Calcium 8.9 mg/dL (8.6-10.3) 12/31/17 05:52 Phosphorus 4.7 mg/dL (2.7-4.5) H 12/28/17 18:53 Magnesium 1.5 mg/dL (1.6-2.6) L 12/28/17 18:53 Urine Sodium < 10.0 mEq/L 12/30/17 16:25 Consult Discharge Plan - Plan Referrals: Nicki Sheehan CNP [Primary Care Provider] -
--- NOTE | 2017-12-31 16:58 | Internal Med Progress Note ---
Hospitalist Progress Note - Encounter Date of Encounter: 12/31/17 Time of Encounter: 11:54 - Subjective Interval History: Better confusion. Family at bedside. Review the lab with no improvement sodium level. Trending down hemoglobin slightly. No active bleeding Denies headache fever chills nausea vomiting abdominal pain, chest pain, shortness of breath, urinary or bowel complaint - Exam Vitals: Temp Pulse Resp BP Pulse Ox 97.8 F 89 16 121/71 91 12/31/17 14:38 12/31/17 14:38 12/31/17 14:38 12/31/17 14:38 12/31/17 14:38 Exam: General appearance: No acute distress, A&O X 2 Head exam: Atraumatic Eye exam: EOMI, PERRLA ENT exam: Moist oral mucosa Neck nontender, supple Respiratory exam: Clear to auscultation bilaterally Cardiovascular exam: Regular rate and rhythm, no systolic murmur Abdominal exam: Soft, nontender, nondistended, positive bowel sounds Extremities exam: No calf tenderness, no pedal edema Present: Skin-no rash, warm, dry, intact Neurological exam: Alert, awake, oriented 2, CN II-XII intact, no focal deficits. No facial droop. Normal speech. Normal gait. - Assessment and Plan (1) Hyponatremia with decreased serum osmolality Current Visit: Yes Status: Acute Assessment and Plan: Multifactorial -most likely secondary to underlying brain mass, high TSH. No improvement sodium level. On board [employer] sales consultant and follow their instruction. [employer] sales consultant. Continue to monitor BMP. Will keep patient in the hospital for another day to monitor BMP. (2) Brain mass Current Visit: Yes Status: Acute Assessment and Plan: New finding . On board neurologist and oncologist. Continue him on higher dose of dexamethasone due to vasogenic edema without shift. Oncologist on board and will discuss discharge plan. (3) Mesothelioma of lung Current Visit: Yes Status: Acute Assessment and Plan: is following with Dr. Varghese at [facility]. had chemotherapy 1 week ago due for chemotherapy again next sunday (Gemcitabine). Will contact him to give update about recent finding. (4) Pancytopenia due to chemotherapy Current Visit: Yes Status: Acute Assessment and Plan: secondary to chemotherapy most likely. On board oncologist. Continue to monitor. Aspirin on hold due to low platelet (5) DVT (deep venous thrombosis) Current Visit: No Status: Acute Assessment and Plan: Recently diagnosed in September 2017. Continue Xarelto . (6) Hypothyroidism Current Visit: Yes Status: Acute Assessment and Plan: Newly diagnosed. Started low dose Synthroid. Needs to follow-up outpatient with the help of PCP. That could be also contributing for hyponatremia (7) DVT prophylaxis Current Visit: Yes Status: Acute Assessment and Plan: on xarelto - Time Spent with Patient Total time spent is greater than 50% in coordination of care (as documented) at patient's floor/unit and/or counseling patient: 25 - 35 minutes Internal Medicine: Result - Labs CBC & Chem 7: 12/31/17 05:52 12/31/17 05:52 Labs: Short CBC 12/31/17 Range/Units 05:52 WBC 5.3 (4.3-11.1) K/mcL Hgb 9.1 L (12.9-16.9) g/dL Hct 27.1 L (37.5-50.1) % Plt Count 95 L D (140-400) K/mcL Neutrophils # 4.7 (1.6-8.9) K/mcL BMP 12/30/17 12/31/17 21:48 05:52 Sodium 129 L 129 L Potassium 4.2 Chloride 95 L Carbon Dioxide 27 BUN 18 Creatinine 0.72 Glucose 109 H Calcium 8.9 Consult Discharge Plan - Plan Referrals: Nicki Sheehan, MADI [Primary Care Provider] - (5) DVT (deep venous thrombosis) Qualifiers: Affected thrombotic vein of extremity: unspecified vein of extremity Chronicity: unspecified Laterality: unspecified laterality Qualified Code(s): I82.409 - Acute embolism and thrombosis of unspecified deep veins of unspecified lower extremity (6) Hypothyroidism Qualifiers: Hypothyroidism type: acquired Qualified Code(s): E03.9 - Hypothyroidism, unspecified
--- NOTE | 2017-12-31 17:05 | Oncology Inp Progress Note ---
Date of Encounter: 12/31/17 Time of Encounter: 17:05 (1) Mesothelioma of lung Current Visit: Yes Status: Acute Assessment and plan: Mesothelioma of lung with progressive lung, with the lytic lesion pathologic destruction of the lower ribs, left pleural-based mass status post chemotherapy and palliative radiation therapy, on single agent gemcitabine at [facility], had received his cycle 1 day 8 gemcitabine on 12/21/2017. CT, MRI brain findings discussed with patient and his family again at visit today. He has not had prior brain imaging at [facility]. Appears likely metastatic disease although rare from his primary cancer. He may not be a candidate for neurosurgical intervention due to systemic disease and palliative treatments. Continue dexamethasone TID due to vasogenic edema without shift. He is being seen by neurology, appreciate recommendations. Per Dr. Cárdenas with oncology and neurology, he has been cleared to continue with his anticoagulation (Xarelto with history of DVT) He does not exhibit or report any neurological symptoms upon assessment today and clinically stable. His symptoms which led his to presentation to the ER have completely resolved with fluid replacement and electrolyte balance. Over weekend, patient had declined transfer to [facility]. He is clinically stable enough for discharge with very close follow up with treating oncologist Dr. Mera Boland with [facility]. Will call office in morning to update on new radiographic findings and send medical reports for continuity of care. The plan as above was discussed with Dr. Cárdenas who agreed with the plan of care. Oncology: Subj Interval history: Mr. Stein is sitting on the couch in room visiting with family at bedside. He denies pain, nausea, vomiting, headache, visual changes, confusion, dysarthria, dizziness, lightheadedness or focal weakness. He has been ambulating in room without assistance. He has no display or report of any neurological symptoms at this time. Family at bedside at this time. - Constitutional Vitals: Vital Signs Temp Pulse Resp BP Pulse Ox 12/31/17 14:38 97.8 F 89 16 121/71 91 12/31/17 10:03 97.4 F L 97 16 122/72 91 12/31/17 06:31 98.6 F 74 15 109/57 91 12/31/17 04:19 98.0 F 79 15 122/80 91 12/30/17 18:46 97.6 F 95 16 117/74 93 Intake and Output 12/31/17 12/31/17 12/31/17 07:59 15:59 23:59 Intake Total 0 / 0 240 / 240 Output Total 275 / 275 675 / 675 Balance -275 / -275 -435 / -435 Intake: Oral 0 / 0 240 / 240 Output: Urine 275 / 275 675 / 675 Other: Meal Lunch Percent of Meal Consumed 25% # Bowel Movements 0 General appearance: cooperative, no acute distress, no febrile - Head Head exam: Present: atraumatic - ENT ENT exam: Present: mucous membranes moist - Respiratory Respiratory exam: Present: CTAB. Absent: respiratory distress - Cardiovascular Cardiovascular exam: Present: RRR, +S1, +S2 - GI/Abdominal GI/Abdominal exam: Present: normal bowel sounds, soft. Absent: tenderness - Extremities Exam Extremities exam: Absent: calf tenderness - Neurological Exam Neurological exam: Present: alert, oriented X3, no focal deficits, strengths equal and symetr throughout. Absent: facial droop, speech deficit - Psychiatric Psychiatric exam: Present: normal affect, normal mood - Skin Skin exam: Present: dry, intact, normal color, warm Oncology: Obj Data - Labs CBC & Chem 7: 01/01/18 08:10 01/01/18 08:10 Consult Discharge Plan - Plan Referrals: Nicki Sheehan CNP [Primary Care Provider] -
--- NOTE | 2017-12-31 17:55 | Electrocardiograph Report ---
[place] [id number] Test Date: 2017-12-28 Pat Name: Rony Stein Department: 104 Room: 3A25 Gender: M Traffic Analyst: [facility] : 1940 Requested By: Ehsan Brand Order Number: [id number] Reading MD: Chelsie Thorpe Measurements Intervals Jones Rate: 112 P: 26 FL: 128 QRS: 39 QRSD: 95 T: 43 QT: 304 QTc: 370 Interpretive Statements SINUS TACHYCARDIA POSSIBLE LEFT ATRIAL ENLARGEMENT NONSPECIFIC ST-WAVE ABNORMALITY ABNORMAL RHYTHM ECG Electronically Signed On 12-31-2017 17:53:40 EDT by Chelsie Thorpe
[2018-01-01] MEDS: *HR* OxyCODONE ER (12 HR) 40 MG TABLET PO SCH ×2 (02:47→10:58)
[2018-01-01] MEDS: *HR* OxyCODONE Immed Rel 5 MG TABLET PO PRN ×3 (04:33→13:06)
[2018-01-01] MEDS: Levothyroxine 25 MCG TABLET PO SCH (06:02)
[2018-01-01 07:08] VITALS: BP 121/69
[2018-01-01 08:22] LABS: Basophils % 0.3 %; Hematocrit 31.6 % (37.5-50.1); Immature Granulocytes % 5.8 % (0-4); Lymphocytes # 0.7 K/mcL (0.6-4.6); Lymphocytes % 9.5 %; Mean Corpuscular HGB Conc 33.9 g/dL (31.6-35.5); Mean Corpuscular Hemoglobin 27.8 pg (28.0-33.3); Mean Corpuscular Volume 82.1 fL (83.0-100.0); Mean Platelet Volume 9.5 fL (9.4-12.4); Monocytes # 0.3 K/mcL (0.0-1.3); Monocytes % 4.5 %; Neutrophils # 5.5 K/mcL (1.6-8.9); Nucleated Red Blood Cells 0.3 /100 WBC (0); Platelet Count 131 K/mcL (140-400); Red Blood Count 3.85 M/mcL (4.19-5.50); Red Cell Distribution Width 17.5 % (11.5-14.5); Segmented Neutrophils % 79.9 %
[2018-01-01 08:23] LABS: Hemoglobin 10.7 g/dL (12.9-16.9)
[2018-01-01] MEDS: Sennosides 8.6 MG TABLET PO SCH (08:30)
[2018-01-01] MEDS: *HR* Rivaroxaban 10 MG TABLET PO SCH (08:30)
[2018-01-01] MEDS: Dexamethasone 4 MG/ML VIAL IVP SCH ×2 (08:31→15:52)
[2018-01-01 08:45] LABS: BUN/Creatinine Ratio 20 (6-26); Blood Urea Nitrogen 17 mg/dL (8-23); Calcium 9.3 mg/dL (8.6-10.3); Carbon Dioxide 29 mEq/L (23-29); Chloride 90 mEq/L (98-107); Glucose 107 mg/dL (70-105); Osmolality,Calculated 270 (280-300); Potassium 3.8 mEq/L (3.5-5.1); Sodium 129 mEq/L (136-145); eGFR For Non-African Americans > 60 (> 60)
[2018-01-01 08:48] LABS: Platelet Estimate Slight Decrease (Normal); Toxic Granulation Present (Not Present)
--- NOTE | 2018-01-01 12:32 | Discharge Summary ---
- NOTES TO OUTPATIENT PROVIDER Notes to Outpatient Provider: Keep appointment with oncologists at [facility]-patient already has appointment this Sunday. Follow-up BMP report with PCP in one week. Fluid restriction 1.5 L per day continue salt tablet. Follow-up with hotel night auditor in 2-3 weeks for hyponatremia Orders not resulted at time of discharge: Pending orders 12/31/17 07:45 Occult Blood,Stool [BF] Stat Date of Encounter: 01/01/18 Time of Encounter: 12:23 - Discharge Diagnosis (1) Hyponatremia with decreased serum osmolality Priority: Primary Status: Acute Assessment and Plan: Multifactorial -most likely secondary to underlying brain mass, high TSH. Stable but not normal sodium level. On board hotel night auditor who advised fluid restriction 1.5 L per day, salt tablet and okay to discharge patient with follow -up appointment. Patient need BMP in 1 week and follow report with PCP. Follow -up appointment with hotel night auditor in 2-3 weeks. (2) Brain mass Priority: Primary Status: Acute Assessment and Plan: New finding . On board neurologist and oncologist and they are okay to discharge with follow-up appointment at [facility] clinic with his oncologist. Started him on higher dose of dexamethasone due to vasogenic edema without shift. (3) Mesothelioma of lung Priority: Secondary Status: Acute Assessment and Plan: is following with Dr. Varghese at [facility]. had chemotherapy 1 week ago due for chemotherapy again next sunday (Gemcitabine). Oncology team did contact contact his office and updated. (4) Pancytopenia due to chemotherapy Priority: Secondary Status: Acute Assessment and Plan: secondary to chemotherapy most likely. (5) DVT (deep venous thrombosis) Priority: Secondary Status: Acute Assessment and Plan: Recently diagnosed in September 2017. Continue Xarelto . Qualifiers: Affected thrombotic vein of extremity: unspecified vein of extremity Chronicity: unspecified Laterality: unspecified laterality Qualified Code(s) : I82.409 - Acute embolism and thrombosis of unspecified deep veins of unspecified lower extremity (6) Hypothyroidism Priority: Primary Status: Acute Assessment and Plan: Newly diagnosed. Started low dose Synthroid. Needs to follow-up outpatient with the help of PCP. That could be also contributing for hyponatremia Qualifiers: Hypothyroidism type: acquired Qualified Code(s): E03.9 - Hypothyroidism, unspecified Hospital course: Mr. Stein is a 77 year old male patient with known history of mesothelioma long , new onset of DVT got admitted for altered mental status workup and found to have hyponatremia. MRI brain with finding suggestive of brain mass. Neurologist, oncologists and hotel night auditor was consulted. New onset of hypothyroidism was also diagnosed. Patient continued to improve clinically but is still low sodium level but hotel night auditor okay to discharge patient with a follow-up appointment. Please see details in diagnosis section of discharge summary. Will discharge patient on new prescription of salt tablet 1 g by mouth 3 times a day, Synthroid 25 g by mouth daily, dexamethasone 4 mg by mouth 3 times a day otherwise continue home medicine. further management as per PCP or oncologists. At the time of discharge patient is clinically and hemodynamically stable, able to ambulate, tolerating oral diet well. Discussed discharge planning with patient and family and consultants. Discharge discussed with: patient, family - Time Spent with Patient Total time spent providing and/or coordinating discharge services: - Discharge Medications Home Medications: Rabeprazole Sodium [Aciphex] 20 mg PO DAILY 10/03/16 [History] Docusate Sodium [Colace] 200 mg PO BID 11/08/17 [History] OxyCODONE Immed Rel [Roxicodone 20 MG] 20 mg PO Q3H PRN 11/08/17 [History] Oxycodone HCl [Oxycontin] 40 mg PO Q8H 11/08/17 [History] Rivaroxaban [Xarelto] 20 mg PO DAILY 11/08/17 [History] Sennosides [Senokot] 2 tab PO BID 11/08/17 [History] Atorvastatin [Lipitor] 40 mg PO HS tablet 01/01/18 [Rx] Dexamethasone [Decadron] 4 mg PO TID #30 01/01/18 [Rx] Levothyroxine [Synthroid] 25 mcg PO DAILY@0630 #30 tablet 01/01/18 [Rx] Sodium Chloride [Sodium Chloride Tab] 1 gm PO TID #90 tablet 01/01/18 [Rx] Allergies/Adverse Reactions: 3 Allergy/AdvReac Type Severity Reaction Status Date / Time morphine Allergy Hallucinati Verified 12/28/17 14:47 ng aspirin AdvReac Heartburn Verified 12/28/17 14:47 Date of admission: 12/29/17 13:28 Primary care physician: Nicki Sheehan CNP Consults: 12/29/17 14:01 Consult to Neurology [CONS] Stat Consulting Provider: Neurology [facility] Reason for Consult: Abnormal MRI brain with questionable mass Call Completed: Yes 12/29/17 14:02 Consult to Oncology Hematology [CONS] Routine Consulting Provider: Vince Herrera Reason for Consult: Abnormal MRI with brain mass Call Completed: Yes 12/30/17 14:43 Consult to Nephrology [CONS] Routine Consulting Provider: Kidney Nettleton/ORIMI/ALLI/VIDYA Reason for Consult: hyponatremia Call Completed: No - Constitutional Vitals: Temp Pulse Resp BP Pulse Ox 98.3 F 83 16 121/69 91 01/01/18 07:04 01/01/18 07:04 01/01/18 07:04 01/01/18 07:04 01/01/18 07:04 Exam: General appearance: No acute distress, A&O X 3 Head exam: Atraumatic Eye exam: EOMI, PERRLA ENT exam: Moist oral mucosa Neck nontender, supple Respiratory exam: Clear to auscultation bilaterally Cardiovascular exam: Regular rate and rhythm, no systolic murmur Abdominal exam: Soft, nontender, nondistended, positive bowel sounds Extremities exam: No calf tenderness, no pedal edema Present: Skin-no rash, warm, dry, intact Neurological exam: Alert, awake, oriented 3, CN II-XII intact, no focal deficits. No facial droop. Normal speech. Normal gait. - Patient Status Disposition: Home, Self-Care Condition: Good Overall status at discharge: patient is progressing back to baseline - Discharge Instructions Follow Up With: Nicki Sheehan CNP [Primary Care Provider] - - Diet and Activity Activity: increase activity as tolerated Diet: advance to your usual diet, other
--- NOTE | 2018-01-01 13:34 | Oncology Inp Progress Note ---
Date of Encounter: 01/01/18 Time of Encounter: 11:00 (1) Mesothelioma of lung Status: Acute Assessment and plan: Mesothelioma of lung with progressive lung, with the lytic lesion pathologic destruction of the lower ribs, left pleural-based mass status post chemotherapy and palliative radiation therapy, on single agent gemcitabine at [facility], had received his cycle 1 day 8 gemcitabine on 12/21/2017. Enhancing right frontal lobe mass measures 1.5 x 1.4 x 1.3 cm most suspicious for intracranial metastatic disease in the setting of known lung cancer. Surrounding vasogenic edema, but no midline shift. Appears likely metastatic disease although rare from his primary cancer. He may not be a candidate for neurosurgical intervention due to systemic disease and palliative treatments. Continue dexamethasone TID due to vasogenic edema without shift upon discharge. He is being seen by neurology, appreciate recommendations. Per Dr. Cárdenas with oncology and neurology, he has been cleared to continue with his anticoagulation (Xarelto with history of DVT) He does not exhibit or report any neurological symptoms upon assessment today and clinically stable. His symptoms which led his to presentation to the ER have completely resolved with fluid replacement and electrolyte balance. Over weekend, patient had declined transfer to [facility]. He is clinically stable enough for discharge with very close follow up with treating oncologist Dr. Mera Boland with [facility]. I did personally call Dr. Boland 's office to update them on radiographic findings and fax medical records to their office as well. The plan as above was discussed with Dr. Cárdenas who agreed with the plan of care. Oncology: Subj Interval history: Mr. Stein is resting in his chair. He denies pain, headache, visual changes, confusion, nausea, vomiting, dizziness or focal deficit. No new acute issues have developed since last assessment. He is hopeful for discharge home soon. He reports constipation and received a laxative this morning, his last normal bowel movement was Sunday. - Constitutional Vitals: Vital Signs Temp Pulse Resp BP Pulse Ox 01/01/18 07:04 98.3 F 83 16 121/69 91 01/01/18 04:24 98.8 F 81 16 102/55 91 12/31/17 19:52 93 12/31/17 18:57 98.5 F 104 18 110/65 92 12/31/17 14:38 97.8 F 89 16 121/71 91 Intake and Output 12/31/17 01/01/18 01/01/18 23:59 07:59 15:59 Intake Total 240 / 240 0 / 0 120 / 120 Output Total 125 / 125 325 / 325 Balance 115 / 115 -325 / -325 120 / 120 Intake: Oral 240 / 240 0 / 0 120 / 120 Output: Urine 125 / 125 325 / 325 Other: Meal Dinner Breakfast Percent of Meal Consumed 60% 50% Weight 71 kg Patient Weight 01/01/18 23:59 Weight 71 kg General appearance: cooperative, no acute distress, no febrile - Head Head exam: Present: atraumatic - Eye Eye exam: Present: PERRL - ENT ENT exam: Present: mucous membranes moist - Respiratory Respiratory exam: Present: CTAB. Absent: respiratory distress - Cardiovascular Cardiovascular exam: Present: RRR, +S1, +S2 - GI/Abdominal GI/Abdominal exam: Present: normal bowel sounds, soft. Absent: guarding, rebound, tenderness - Extremities Exam Extremities exam: Absent: calf tenderness - Neurological Exam Neurological exam: Present: alert, oriented X3, no focal deficits, strengths equal and symetr throughout - Psychiatric Psychiatric exam: Present: normal affect, normal mood - Skin Skin exam: Present: dry, intact, normal color, warm Oncology: Obj Data - Labs CBC & Chem 7: 01/01/18 08:10 01/01/18 08:10 Labs: Laboratory Results - last 24 hr 01/01/18 01/01/18 08:10 08:10 WBC 6.9 RBC 3.85 L Hgb 10.7 L D Hct 31.6 L MCV 82.1 L MCH 27.8 L MCHC 33.9 RDW 17.5 H Plt Count 131 L MPV 9.5 Immature Gran % 5.8 H Seg Neutrophils % 79.9 Lymphocytes % 9.5 Monocytes % 4.5 Eosinophils % 0.0 Basophils % 0.3 Neutrophils # 5.5 Lymphocytes # 0.7 Monocytes # 0.3 Eosinophils # 0.0 Basophils # 0.0 Nucleated RBCs/100 WBC 0.3 H Toxic Granulation Present A Platelet Estimate Slight Decrease L Sodium 129 L Potassium 3.8 Chloride 90 L Carbon Dioxide 29 BUN 17 Creatinine 0.85 Est GFR ( Amer) > 60 Est GFR (Non-Af Amer) > 60 BUN/Creatinine Ratio 20 Glucose 107 H Calculated Osmolality 270 L Calcium 9.3 Consult Discharge Plan - Plan Referrals: Nicki Sheehan CNP [Primary Care Provider] - 01/07/18 2:00 pm Prescriptions: Levothyroxine [Synthroid] 25 mcg PO DAILY@629 #30 tablet Sodium Chloride [Sodium Chloride Tab] 1 gm PO TID #90 tablet
== END 2018-01-01 17:20 | disposition home or self-care (01) | DRG 640 ==
LOC: EMEROO 13:45 → 3ANU 13:45
PROVIDERS: ADMIT Internal Medicine; ATTEND Internal Medicine